=== PATIENT | female | born 1970 | race Caucasian/White ===

== ENCOUNTER → 2020-03-26 | Outpatient (CLI) | payer OTHER ==
[~2020-03-26] MED LIST: HYDACE5 PO
== END ==
LOC: LAB EV 12:37 → LAB SHORT 12:37
DX: N39.0 Urinary tract infection, site not specified (principal)
CPT/HCPCS: 87086

== ENCOUNTER → 2023-01-13 | Outpatient (CLI) | payer BC ==
[~2023-01-13] MED LIST changes: +ESCI20 PO; +METHYLFOLATE PO; +Vitamin D2000 UNIT PO; +ZYRTEC10 M1 PO
[2023-01-13 15:03] LABS: BASOPHILS ABSOLUTE AUTO 0.07 K/mm3 (0.00-0.23); BASOPHILS PERCENT AUTO 1 % (0-2); EOSINOPHILS ABSOLUTE AUTO 0.06 K/mm3 (0.00-0.68); EOSINOPHILS PERCENT AUTO 1 % (0-6); Hematocrit 43.6 % (33.0-51.0); Hemoglobin 15.4 g/dL (11.5-16.0); IMMATURE GRAN ABSOLUTE AUTO 0.04 K/mm3 (0.00-0.10); IMMATURE GRAN PERCENT AUTO 0 % (0-1); LYMPHOCYTES ABSOLUTE AUTO 2.12 K/mm3 (0.84-5.20); LYMPHOCYTES PERCENT AUTO 24 % (21-46); MONOCYTES ABSOLUTE AUTO 0.68 K/mm3 (0.16-1.47); MONOCYTES PERCENT AUTO 8 % (4-13); Mean Corpuscular HGB 31.2 pg (26.0-34.0); Mean Corpuscular HGB Conc 35.3 g/dL (31.5-36.5); Mean Corpuscular Volume 88 fL (80-100); NEUTROPHILS ABSOLUTE AUTO 6.02 K/mm3 (1.96-9.15); NEUTROPHILS PERCENT AUTO 67 % (41-73); Platelet Count 296 K/mm3 (150-400); RDW Coefficient Variation 12.2 % (11.7-14.2); RDW Standard Deviation 39.5 fL (35.1-46.3); Red Blood Cell Count 4.93 M/mm3 (3.80-5.20); White Blood Cell Count 8.99 K/mm3 (4.00-11.30)
[2023-01-13 15:14] LABS: Albumin, Blood 3.9 g/dL (3.4-5.0); Albumin/Globulin Ratio 1.1 (0.8-1.8); Bilirubin, Total 0.5 mg/dL (0.1-1.0); Bun/Creatinine Ratio 17.5 (12.0-20.0); Calcium, Blood 9.1 mg/dL (8.5-10.1); Creatinine, Blood 0.8 mg/dL (0.40-1.00); Globulin, Blood 3.6 g/dL (2.2-4.0); Potassium, Blood 3.7 mmol/L (3.5-5.5); Total Protein, Blood 7.5 g/dL (6.4-8.2)
== END | disposition home or self-care (01) ==
LOC: LAB 14:58 → LAB SHORT 14:58
PROVIDERS: Physician Assistant
DX: R10.31 Right lower quadrant pain (principal)
CPT/HCPCS: 80053; 85025

== ENCOUNTER 2023-06-02 19:04 | Inpatient (IN) | payer BC ==
[~2023-06-02] VITALS: Ht 177.8 cm; Wt 68.5 kg
[2023-06-02] MEDS ORDERED: CELEBREX200 MG PO (20:47)
[2023-06-02] MEDS ORDERED: Phenergan25 M1 (20:48)
[2023-06-02] MEDS ORDERED: ZOLP5 PO (20:48)
[2023-06-02] MEDS ORDERED: Cyclobenzaprine5 MG (20:48)
[2023-06-02] MEDS ORDERED: LORAZEPAM0.5 MG PO (20:48)
[2023-06-02] MEDS ORDERED: OXYC5 (20:48)
[2023-06-02 21:24] VITALS: BP 96/66
[2023-06-03 04:23] VITALS: BP 93/62
--- NOTE | 2023-06-03 04:40 | NUR ---
EOS NOTE: PATIENT ARRIVED TO THE FLOOR FROM ED AT 2119, A/OX4, INDEPENDENT IN THE ROOM, NO COMPLAINTS OF PAIN DURING SHIFT. MILD TENDERNESS AND DISTENTION TO ABD. FAMILY AT BEDSIDE, PATIENT RESTED QUIETLY MOST OF THE NIGHT. USES CALL LIGHT APPROPRIATELY. VERY PLEASANT AND COOPERATIVE. VSS
[2023-06-03 07:29] VITALS: BP 90/64
[2023-06-03 14:38] VITALS: BP 102/71
[2023-06-03 19:30] VITALS: BP 102/65
[2023-06-04 03:40] VITALS: BP 91/67
[2023-06-04 04:18] LABS: BASOPHILS ABSOLUTE AUTO 0.05 K/mm3 (0.00-0.23); BASOPHILS PERCENT AUTO 1 % (0-2); EOSINOPHILS ABSOLUTE AUTO 0.12 K/mm3 (0.00-0.68); EOSINOPHILS PERCENT AUTO 2 % (0-6); Hematocrit 36.7 % (33.0-51.0); Hemoglobin 12.7 g/dL (11.5-16.0); IMMATURE GRAN ABSOLUTE AUTO 0.02 K/mm3 (0.00-0.10); IMMATURE GRAN PERCENT AUTO 0 % (0-1); LYMPHOCYTES ABSOLUTE AUTO 1.65 K/mm3 (0.84-5.20); LYMPHOCYTES PERCENT AUTO 30 % (21-46); MONOCYTES PERCENT AUTO 11 % (4-13); Mean Corpuscular HGB 30.7 pg (26.0-34.0); Mean Corpuscular HGB Conc 34.6 g/dL (31.5-36.5); Mean Corpuscular Volume 89 fL (80-100); Mean Platelet Volume 10.2 fL (9.1-12.4); NEUTROPHILS ABSOLUTE AUTO 3.13 K/mm3 (1.96-9.15); NEUTROPHILS PERCENT AUTO 56 % (41-73); Platelet Count 253 K/mm3 (150-400); RDW Standard Deviation 38.9 fL (35.1-46.3); Red Blood Cell Count 4.14 M/mm3 (3.80-5.20); White Blood Cell Count 5.57 K/mm3 (4.00-11.30)
--- NOTE | 2023-06-04 04:28 | NUR ---
SHIFT SUMMARY NO ACUTE CHANGES. PT SLEPT WELL. TORADOL FOR PAIN AND ZOFRAN FOR NAUSEA X1. TG CLEAR LIQ DIET. IV ABX PER ORDERS. PT INDEP IN ROOM. USES CALL LIGHT APPROPRIATELY.
[2023-06-04 04:39] LABS: Bun/Creatinine Ratio 15.6 (12.0-20.0); Calcium, Blood 8.4 mg/dL (8.5-10.1); Creatinine, Blood 0.71 mg/dL (0.40-1.00); Magnesium, Blood 2.2 mg/dL (1.6-2.4); Potassium, Blood 4.1 mmol/L (3.5-5.5)
[2023-06-04 08:07] VITALS: BP 91/65
--- NOTE | 2023-06-04 10:11 | NUR ---
PT ASSESSED FOR IGNITION SOURCES, NO FINDINGS.
[2023-06-04] MEDS ORDERED: Acetaminophen650 M1 PO (11:34)
[2023-06-04] MEDS ORDERED: CIPR500 PO (11:34)
[2023-06-04] MEDS ORDERED: IBUP600 PO (11:36)
[2023-06-04] MEDS ORDERED: ONDA4ODT MM (11:37)
[2023-06-04] MEDS ORDERED: FLAGYL500 MG PO (11:37)
--- NOTE | 2023-06-04 11:41 | NUR ---
PT REPORTED NAUSEA AFTER EATING A CLEAR LIQUID BREAKFAST. SHE STATED THAT SHE THOUGHT NAUSEA WAS CAUSED FROM LACK OF SUBSTANCE AND SHE REQUESTED A FULL LIQUID TRAY. PT WAS ABLE TO TOLERATE SOME CREAM OF WHEAT AND SHE REPORTED NAUSEA IMPROVED AFTER EATING. PT DENIED INCREASE IN PAIN AFTER EATING. OVERALL PT HAS APPEARED TO TOLERATE FULL LIQUIDS WELL.
[2023-06-04 12:32] VITALS: BP 101/76
--- NOTE | 2023-06-04 13:44 | NUR ---
DISCHARGE PT WAS PROVIDED WITH WRITTEN AND VERBAL DISCHARGE INSTRUCTIONS, SHE REPORTED UDNERSTANDING. PT TOLERATED FULL LIQUIDS PRIOR TO DISCHARGE. SHE REPORTS HER LAST BM WAS ON TUESDAY, DR. GOLD NOTIFIED AND RECOMMENDED MIRALAX AND MILK OF MAG AT HOME TO TREAT CONSTIPATION. PT MEETING ALL GOALS BEFORE DISCHARGE. VSS WITHIN 1 HOUR OF DISCHARGE. PT AMBULATED OUT INDEPENDENTLY. PT REPORTED SHE HAD ALREADY OBTAINED PRESCRIPTIONS FOR HOME.
== END 2023-06-04 13:10 | disposition home or self-care (01) | DRG 392 ==
LOC: ER 19:04 → SURS 19:05
PROVIDERS: ADMIT Surgery
DX: K57.20 Diverticulitis of large intestine with perforation and abscess without bleeding (principal); F41.9 Anxiety disorder, unspecified; K59.00 Constipation, unspecified; Z98.890 Other specified postprocedural states; Z79.899 Other long term (current) drug therapy; Z98.51 Tubal ligation status; Z90.710 Acquired absence of both cervix and uterus; Z90.49 Acquired absence of other specified parts of digestive tract; Z79.891 Long term (current) use of opiate analgesic
CPT/HCPCS: 36415; 80048; 83735; 85025; 96365; 96375; 96376; 99284-25; A9270; G0378; J0696; J1170; J1885; J2405; J3010